=== PATIENT | male | born 1960 | race Caucasian/White ===

== ENCOUNTER 2017-01-26 09:00 | Emergency (ER) | payer SELFPAY ==
[~2017-01-26] VITALS: Ht 185.4 cm; Wt 102.2 kg
[2017-01-26 09:55] LABS: CARBON DIOXIDE (BICARBONATE) 27.9 MEQ/L (20-31); MCH 30.7 PG (29.0-34.0); MCHC 34.2 G/DL (30.0-36.0); MCV 89.8 FL (86-99); MEAN PLAT.VOLUME 9.6 uM^3 (9.0-12.4); RBC DIS.WIDTH-CV 11.1 % (11.8-14.6); RBC DIS.WIDTH-SD 36.5 % (39-53); RED BLOOD COUNT 5.01 M/uL (4.00-5.50); WHITE BLOOD COUNT 4.3 K/uL (4.1-10.2)
[2017-01-26 09:58] LABS: PLATELET COUNT 167 K/uL (156-360)
[2017-01-26 10:06] LABS: CHLORIDE 103 mEq/L (99-109); POTASSIUM 4.7 mEq/L (3.7-5.4); SODIUM 136 mEq/L (136-147)
[2017-01-26 10:07] LABS: GLUCOSE 312 mg/dL (70-99)
[2017-01-26 10:09] LABS: ANION GAP 11 MEQ/L (2-14)
[2017-01-26 10:11] LABS: GFR ESTIMATE (CALCULATED) > 59 mL/min/
[2017-01-26 10:12] LABS: UREA NITROGEN (BUN) 16 mg/dL (9-23)
[2017-01-26] MEDS ORDERED: AMOX TR-K CLV1 EAC4 PO (11:41)
[2017-01-26] MEDS ORDERED: METFORMIN HCL1000 MG PO (11:42)
[2017-01-26] MEDS ORDERED: LEVAQUIN750 MG PO ×2 (11:44→14:02)
[2017-01-26 13:14] LABS: POINT-OF-CARE METER ID UU13113747
[2017-01-26 15:45] VITALS: BP 125/85
== END 2017-01-26 15:45 | disposition home or self-care (01) ==
LOC: EME 09:00
PROVIDERS: Emergency Medicine
DX: E11.52 Type 2 diabetes mellitus with diabetic peripheral angiopathy with gangrene (principal); E11.621 Type 2 diabetes mellitus with foot ulcer; L97.519 Non-pressure chronic ulcer of other part of right foot with unspecified severity; Z79.84 Long term (current) use of oral hypoglycemic drugs
CPT/HCPCS: 80048; 82010; 82803; 82948; 85027; 93005; 99281; 99285; J7030

== ENCOUNTER 2017-01-27 07:51 | Day surgery (SDC) | payer SELFPAY ==
[~2017-01-27] VITALS: Ht 185.4 cm; Wt 106.0 kg
[~2017-01-27 07:51] MED LIST: AMOX TR-K CLV1 EAC4 PO; LEVAQUIN750 MG PO; METFORMIN HCL1000 MG PO
[2017-01-27 08:31] LABS: POINT-OF-CARE METER ID UU14174212
[2017-01-27 08:32] VITALS: BP 132/83
[2017-01-27 10:50] LABS: POINT-OF-CARE METER ID UU13113675
[2017-01-27 11:15] VITALS: BP 125/69
[2017-01-27 11:53] VITALS: BP 129/81
== END 2017-01-27 12:00 | disposition home or self-care (01) ==
LOC: SDC
PROVIDERS: Podiatrist Foot & Ankle Surgery
DX: M86.10 Other acute osteomyelitis, unspecified site (principal); E11.69 Type 2 diabetes mellitus with other specified complication; E11.52 Type 2 diabetes mellitus with diabetic peripheral angiopathy with gangrene; E11.621 Type 2 diabetes mellitus with foot ulcer; L97.511 Non-pressure chronic ulcer of other part of right foot limited to breakdown of skin; E11.65 Type 2 diabetes mellitus with hyperglycemia; E11.42 Type 2 diabetes mellitus with diabetic polyneuropathy; F10.10 Alcohol abuse, uncomplicated; Z79.84 Long term (current) use of oral hypoglycemic drugs
CPT/HCPCS: 82948; 87070; 87075; 87076; 87077; 87147; 87185; 87186; 87205; 88304; 88311; J0131; J0690; J2250; J2405; J2765; J3010; S0020